=== PATIENT | female | born 1955 | race Asian ===

== ENCOUNTER 2021-03-28 04:23 | Day surgery (SDC) | payer OTHER ==
[2021-03-09 12:25] VITALS: BMI 23.9
[~2021-03-28 04:23] MED LIST: ACETAMINOPHEN 1000 MG/100 ML BAG IVPB ONE; CEFAZOLIN 2 GM in DEXTROSE 5%-WATER - 100 ML IVPB ONE; GABAPENTIN 300 MG CAPSULE PO ONE; TRANEXAMIC ACID 1000 MG/10 ML VIAL IVPUSH ONE
[2021-03-28] MEDS ORDERED: BUPIVACAINE LIPOSOME/PF (EXPAREL) 266 MG/20 ML VIAL ONE (07:14)
[2021-03-28] MEDS ORDERED: BUPIVACAINE HCL/PF 0.5% (5MG/ML) 10 ML VIAL ONE (07:14)
[2021-03-28] MEDS ORDERED: PROPOFOL 20 ML ONE (07:14)
[2021-03-28] MEDS ORDERED: MIDAZOLAM HCL 2 MG/2 ML SINGLE DOSE VIAL ONE (07:14)
[2021-03-28] MEDS ORDERED: SUCCINYLCHOLINE CHLORIDE 200 MG/10 ML SYRINGE ONE (07:15)
[2021-03-28] MEDS ORDERED: ROCURONIUM BROMIDE 50 MG/5 ML SYRINGE ONE ×2 (07:15→09:04)
[2021-03-28] MEDS ORDERED: ceFAZolin SODIUM 1 GM VIAL IVPB ONE (08:25)
[2021-03-28] MEDS ORDERED: HYDROmorphone HCl 2 MG/ML VIAL ONE (08:56)
[2021-03-28] MEDS ORDERED: KETAMINE HCL 200 MG/20 ML VIAL ONE (09:00)
[2021-03-28] MEDS ORDERED: NEOSTIGMINE METHYLSULFATE 0.5 MG/ML - 10 ML MDV ONE (09:50)
[2021-03-28] MEDS ORDERED: DEXAMETHASONE SOD PHOSPHATE 4 MG/1 ML VIAL ONE (10:05)
[2021-03-28] MEDS ORDERED: LIDOCAINE HCL/PF 2% SDV 5ML VIAL ONE (10:05)
[2021-03-28] MEDS ORDERED: BACITRACIN 15 GM TUBE TOPICAL OINTMENT ONE (10:09)
[2021-03-28] MEDS ORDERED: ONDANSETRON 4 MG/2 ML VIAL IVPUSH PRN ×2 (10:36→11:01)
[2021-03-28] MEDS ORDERED: PROMETHAZINE HCL 25 MG/1 ML VIAL IVPUSH PRN (10:36)
[2021-03-28] MEDS ORDERED: SIMETHICONE 80 MG TAB.CHEW (FP) PO PRN (11:01)
[2021-03-28] MEDS ORDERED: DOCUSATE SODIUM 100 MG CAPSULE (FP) PO PRN (11:01)
[2021-03-28] MEDS ORDERED: oxyCODONE HCL 5 MG TABLET PO PRN (11:01)
[2021-03-28] MEDS ORDERED: BISACODYL 5 MG TABLET.DR (FP) PO PRN (11:01)
[2021-03-28] MEDS: LACTATED RINGERS SOLUTION 1,000 ML IV SCH (12:25)
[2021-03-28] MEDS ORDERED: PATIENT'S OWN MEDICATION (NON-FORMULARY) (Lipase/Protease/Amylase [Zenpep Dr 40,000 Unit C PO SCH (14:00)
[2021-03-28] MEDS ORDERED: DEXTROSE 5%-WATER 100 ML IVPB ONE (16:21)
[2021-03-28] MEDS ORDERED: ceFAZolin SODIUM 1 GM VIAL ONE (16:21)
[2021-03-28] MEDS ORDERED: INSULIN SLIDING SCALE (NOVOLOG) 1 VIAL SQ SCH (16:30)
[2021-03-28] MEDS: CEFAZOLIN 1 GM in DEXTROSE 5%-WATER 100 ML IVPB SCH ×2 (16:33→17:31)
[2021-03-28] MEDS: ACETAMINOPHEN 500 MG TABLET (FP) PO SCH ×2 (16:34→22:21)
[2021-03-28] MEDS: INSULIN SLIDING SCALE (NOVOLOG) 1 VIAL SQ SCH ×2 (16:52→22:35)
[2021-03-28] MEDS: oxyCODONE HCL 5 MG TABLET PO PRN (18:25)
[2021-03-28 20:20] LABS: HEMATOCRIT 34.9 % (32.4-45.2); HEMOGLOBIN 11.8 GM/dL (10.7-15.3); MCH 29.9 pg (25.7-33.7); MCHC 33.7 g/dl (32.0-36.0); MEAN CELL VOLUME 88.7 fl (80-96); MEAN PLT VOLUME 9.1 fl (7.5-11.1); PLATELET COUNT 323 10^3/uL (134-434); RBC 3.93 M/mm3 (3.60-5.2); RDW 13.4 % (11.6-15.6); WHITE BLOOD COUNT 10.8 K/mm3 (4.0-10.0)
[2021-03-28 20:25] LABS: CALCIUM 9.1 mg/dL (8.5-10.1)
[2021-03-28 20:26] LABS: BLOOD UREA NITROGEN 10.4 mg/dL (7-18)
[2021-03-28 20:29] LABS: CREATININE 0.6 mg/dL (0.55-1.3)
[2021-03-29] MEDS ORDERED: ceFAZolin SODIUM 1 GM VIAL ONE ×3 (01:28→10:21)
[2021-03-29] MEDS ORDERED: DEXTROSE 5%-WATER 0 ML IVPB ONE (01:29)
[2021-03-29] MEDS ORDERED: DEXTROSE 5%-WATER 100 ML IVPB ONE ×2 (01:48→10:22)
[2021-03-29] MEDS: CEFAZOLIN 1 GM in DEXTROSE 5%-WATER 100 ML IVPB SCH ×2 (01:52→10:25)
[2021-03-29] MEDS: oxyCODONE HCL 5 MG TABLET PO PRN (02:06)
[2021-03-29] MEDS: ACETAMINOPHEN 500 MG TABLET (FP) PO SCH ×3 (04:41→17:40)
[2021-03-29] MEDS: LACTATED RINGERS SOLUTION 1,000 ML IV SCH (04:43)
[2021-03-29] MEDS: INSULIN SLIDING SCALE (NOVOLOG) 1 VIAL SQ SCH ×3 (06:21→17:40)
[2021-03-29 09:42] LABS: HEMATOCRIT 30.7 % (32.4-45.2); HEMOGLOBIN 10.4 GM/dL (10.7-15.3); MCH 30.4 pg (25.7-33.7); MEAN CELL VOLUME 89.3 fl (80-96); MEAN PLT VOLUME 9.5 fl (7.5-11.1); PLATELET COUNT 296 10^3/uL (134-434); RBC 3.43 M/mm3 (3.60-5.2); RDW 13.4 % (11.6-15.6); WHITE BLOOD COUNT 12.2 K/mm3 (4.0-10.0)
[2021-03-29] MEDS ORDERED: LOSARTAN POTASSIUM 50 MG TABLET PO SCH (10:00)
[2021-03-29] MEDS ORDERED: SOLIFENACIN SUCCINATE 5 MG TAB PO SCH (10:00)
[2021-03-29] MEDS ORDERED: ENOXAPARIN NA (PORCINE) 40 MG/0.4 ML DISP.SYRIN SQ SCH (10:00)
[2021-03-29] MEDS ORDERED: PATIENT'S OWN MEDICATION (NON-FORMULARY) (Plecanatide [Trulance] 3 MG Tablet) PO SCH (10:00)
[2021-03-29] MEDS ORDERED: PANTOPRAZOLE 20 MG TABLET PO SCH (10:00)
[2021-03-29 10:16] LABS: CALCIUM 8.7 mg/dL (8.5-10.1)
[2021-03-29 10:17] LABS: BLOOD UREA NITROGEN 7.1 mg/dL (7-18)
[2021-03-29 10:20] LABS: CREATININE 0.6 mg/dL (0.55-1.3)
[2021-03-29 14:01] VITALS: BP 104/64; PULSE 85; TEMP 98.1
[2021-03-29] MEDS ORDERED: ATORVASTATIN CA 20 MG TABLET (FP) PO SCH (22:00)
== END 2021-03-29 18:07 | disposition home or self-care (01) ==
LOC: JASUSAT 04:23 → J6S 13:21 → JASUSAT 03-29 18:07
PROVIDERS: ATTEND Obstetrics & Gynecology
PROC: 0UT74ZZ Resection of Bilateral Fallopian Tubes, Percutaneous Endoscopic Approach (ICD-10-PCS; 2021-03-28)
PROC: 8E0W4CZ Robotic Assisted Procedure of Trunk Region, Percutaneous Endoscopic Approach (ICD-10-PCS; 2021-03-28)
PROC: 0UT94ZZ Resection of Uterus, Percutaneous Endoscopic Approach (ICD-10-PCS; principal; 2021-03-28 07:30)
PROC: 0UT14ZZ Resection of Left Ovary, Percutaneous Endoscopic Approach (ICD-10-PCS; 2021-03-28 07:30)
DX: N83.202 Unspecified ovarian cyst, left side (principal); R10.2 Pelvic and perineal pain; N80.0 Endometriosis of uterus
CPT/HCPCS: 58571; S2900; 36415; 80048; 82962; 85027; 86850; 86900; 86901; 86922; 88302-TC; 88304-TC; 88307-TC; 94010; 94760